=== PATIENT | female | born 1970 | race Caucasian/White ===

== ENCOUNTER 2023-11-23 10:35 | Emergency (ER) | payer BC ==
[2023-11-23 11:01] VITALS: BP 128/100; PULSE 101; RESP 16; TEMP 98.1; BMI 22.3
[2023-11-23] MEDS ORDERED: SULFAMETHOXAZOLE/TRIMETHOPRIM 800MG/160MG D.S. TABLET PO ONE (11:28)
[2023-11-23] MEDS ORDERED: metroNIDAZOLE 500 MG TABLET PO ONE (11:28)
[2023-11-23] MEDS ORDERED: SULFAMETHOXAZOLE/TRIMETHOPRIM 800MG/160MG D.S. TABLET ONE (11:34)
[2023-11-23] MEDS ORDERED: metroNIDAZOLE 250 MG TABLET ONE (11:35)
[2023-11-23] MEDS ORDERED: DIPHTH,PERTUSS(ACELL),TET 0.5 ML DISP.SYRIN IM ONE ×2 (11:39→11:40)
== END 2023-11-23 11:47 | disposition left against medical advice (07) ==
LOC: FER 10:35
PROC: 3E0234Z Introduction of Serum, Toxoid and Vaccine into Muscle, Percutaneous Approach (ICD-10-PCS; principal; 2023-11-23)
DX: S61.452A Open bite of left hand, initial encounter (principal); S61.251A Open bite of left index finger without damage to nail, initial encounter; S61.253A Open bite of left middle finger without damage to nail, initial encounter; M79.89 Other specified soft tissue disorders; M79.642 Pain in left hand; W54.0XXA Bitten by dog, initial encounter
CPT/HCPCS: 73110-TC-LT-FY; 73130-TC-LT-FY; 90715; 99283-25

== ENCOUNTER 2023-11-24 09:07 | Emergency (ER) | payer BC ==
[2023-11-24 09:16] VITALS: BP 157/100; PULSE 110; RESP 16; TEMP 99.1; BMI 22.3
[2023-11-24] MEDS ORDERED: CEFTRIAXONE 2 GM in DEXTROSE 5%-WATER - 50 ML IVPB ONE (09:43)
[2023-11-24] MEDS ORDERED: SODIUM CHLORIDE 1,000 ML IV ONE (09:57)
[2023-11-24 10:20] LABS: HEMATOCRIT 45.3 % (32.4-45.2); MCH 34.3 pg (25.7-33.7); MCHC 35.4 g/dl (32.0-36.0); MEAN CELL VOLUME 96.8 fl (80-96); MEAN PLT VOLUME 8.7 fl (7.5-11.1); PLATELET COUNT 247.3 10^3/uL (134-434); RBC 4.68 10^6/uL (3.60-5.2); RDW 12.9 % (11.6-15.6); WHITE BLOOD COUNT 10.7 10^3/uL (4.0-10.8)
[2023-11-24 10:22] LABS: PLATELET ESTIMATE ADEQUATE
[2023-11-24 10:26] LABS: BILIRUBIN,TOTAL 0.4 mg/dl (0.2-1); CALCIUM 9.8 mg/dl (8.5-10.1); CREATININE 0.8 mg/dl (0.6-1.3); POTASSIUM 3.8 mmol/L (3.5-5.1); TOT PROT 7.6 g/dl (6.4-8.2)
[2023-11-24] MEDS ORDERED: ACETAMINOPHEN 500 MG TABLET (FP) PO ONE (11:49)
[2023-11-24] MEDS ORDERED: ACETAMINOPHEN 500 MG TABLET (FP) ONE (11:50)
== END 2023-11-24 13:39 | disposition left against medical advice (07) ==
LOC: FER 09:07
PROC: 3E03329 Introduction of Other Anti-infective into Peripheral Vein, Percutaneous Approach (ICD-10-PCS; principal; 2023-11-24)
PROC: 3E03329 Introduction of Other Anti-infective into Peripheral Vein, Percutaneous Approach (ICD-10-PCS; 2023-11-24)
PROC: 3E0337Z Introduction of Electrolytic and Water Balance Substance into Peripheral Vein, Percutaneous Approach (ICD-10-PCS; 2023-11-24)
DX: S61.452A Open bite of left hand, initial encounter (principal); M79.642 Pain in left hand; M79.89 Other specified soft tissue disorders; W54.0XXA Bitten by dog, initial encounter
CPT/HCPCS: 36415; 73201-TC-RT; 80053; 85027; 87040; 99285-25; Q9967

== ENCOUNTER 2024-03-26 20:02 | Emergency (ER) | payer BC ==
[2024-03-26 20:17] VITALS: BP 174/107; PULSE 88; RESP 20; TEMP 97.9; BMI 22.3
[2024-03-26] MEDS ORDERED: ALPRAZolam 0.25 MG TABLET ONE (20:44)
[2024-03-29] MEDS ORDERED: Pregnancy Control Solution IV ONE (11:17)
== END 2024-03-26 21:09 | disposition home or self-care (01) ==
LOC: FER 20:02
DX: I10 Essential (primary) hypertension (principal); F10.930 Alcohol use, unspecified with withdrawal, uncomplicated; Y90.9 Presence of alcohol in blood, level not specified
CPT/HCPCS: 99282-25